=== PATIENT | female | born 1970 | race Caucasian/White ===

== ENCOUNTER 2020-03-15 04:44 | Inpatient (IN) | payer BC, SELFPAY ==
[2020-03-15] VITALS (83 sets, daily range): BP systolic 78–204; BP diastolic 56–123; PULSE 63–104; RESP 10–28; TEMP 36.5–37; O2SAT 90–100; BMI 29.0
--- NOTE | 2020-03-15 04:45 | ECG_ITS ---
[facility] Test Date: 2020-03-15 Pat Name: Saida Corley Department: Room: Gender: Female Loan Analyst: : 1970 Requested By: Mayur Delvalle Order Number: [id number] Joseph MD: Rhea Aggarwal M.D. Measurements Intervals [place] Rate: 65 P: 59 NE: 176 QRS: 50 QRSD: 79 T: 101 QT: 390 QTc: 406 Interpretive Statements SINUS RHYTHM LOW QRS VOLTAGE IN PRECORDIAL LEADS [QRS DEFLECTION < 1.0 mV IN CHEST LEADS] SEPTAL MYOCARDIAL INFARCTION , OF INDETERMINATE AGE [40+ ms Q WAVE IN V1/V2] MARKED ST ELEVATION, CONSIDER INFERIOR INJURY [MARKED ST ELEVATION W/O NORMALLY INFLECTED T WAVE IN II/aVF] ACUTE NH INTERPRETATION BASED ON A DEFAULT AGE OF 40 YEARS Compared to ECG 03/15/2020 04:48:16 Low QRS voltage now present Myocardial infarct finding still present ST (T wave) deviation still present Electronically Signed On 03-15-2020 20:52:58 CDT by Rhea Aggarwal M.D. [id number]
--- NOTE | 2020-03-15 04:45 | XR_ITS ---
WS: [id number] CHEST XRAY TECHNIQUE: Portable chest. CLINICAL INFORMATION: cp COMPARISON: February 03, 2011 FINDINGS: Heart: Normal cardiac silhouette. Lungs: Lungs are clear. No consolidation or pleural effusion. Bones: Normal visualized bony structures. XR/XR chest 1V portable [id number] IMPRESSION: Normal chest
--- NOTE | 2020-03-15 04:55 | W.ED.CHESTPA ---
HPI - Chest Pain General: Chief Complaint: Chest Pain Stated Complaint: cp Time Seen by Provider: 03/15/20 04:50 Source: patient Mode of arrival: ambulatory Limitations: no limitations History of Present Illness: HPI narrative: 49-year-old female states she woke up roughly 1 hour ago with chest pain. Patient states that the pain was a severe pressure type pain in the center of her chest she rates an 8 out of 10. Patient is in no distress currently. Patient states she has no worsening or improving factors. Has had some nausea. Denies any shortness of breath. Denies any cough or fever. MD complaint: chest pain Onset (ago): hour(s) Associated symptoms: Deny abdominal pain, dyspnea, fever(s), nausea or vomiting Review of Systems Const: Denies: fever(s), chills, body aches or change in appetite Eyes: Denies: blurry vision or eye discomfort ENMT: Denies: throat pain or dental pain Card: Reports: chest pain Resp: Denies: dyspnea GI: Denies: abdominal pain, nausea, vomiting or diarrhea : Denies: dysuria Musc: Denies: neck pain or back pain Skin/Breast: Denies: rash Neuro: Denies: headache(s) Psych: Denies: depression Zechariah/Lymph: Denies: easy bruising All/Imm: Denies: urticaria Physical Exam Const: COMMON NORMALS: patient oriented x3 and healthy appearing GENERAL APPEARANCE: in distress HENMT: COMMON NORMALS: normocephalic and atraumatic HEAD & SCALP: normocephalic and atraumatic Eye: COMMON NORMALS: Equal, round and reactive pupils present and EOMs intact bilaterally PUPIL: Yes Equal, round and reactive pupils present Neck/C-Spine: COMMON NORMALS: full ROM and supple Chest: COMMONS NORMALS: normal inspection of the chest and normal palpation of entire chest wall Resp: COMMON NORMALS: normal respiratory effort, No retractions, No use of accessory muscles and clear to auscultation bilaterally AUSCULTATION: clear to auscultation bilaterally Cardio: COMMON NORMALS: regular rate, regular rhythm and No murmurs present (Cardio) RATE: regular rate RHYTHM: regular rhythm GI: COMMON NORMALS: Normal to inspection, nondistended, normoactive bowel sounds present, Soft to palpation, non-tender and no masses PALPATION: Yes Soft to palpation Extremity: COMMON NORMALS: normal to inspection and full ROM Neuro: COMMON NORMALS: patient oriented x3, moves all extremities and no focal motor deficits Psych: COMMON NORMALS: mental status grossly normal, Normal thought process present and cooperative THOUGHT PROCESS: Normal thought process present Skin: COMMON NORMALS: no rashes or lesions noted and no wounds GENERAL SKIN EXAM: no rashes or lesions noted Course Vital Signs: Vital signs: Vital Signs Temperature 97.7 F 03/15/20 04:48 Pulse Rate 67 03/15/20 05:09 Respiratory Rate 16 03/15/20 05:09 Blood Pressure 112/81 03/15/20 05:09 Pulse Oximetry 93 03/15/20 05:09 MDM - Chest Pain MDM Narrative: Medical decision making narrative: Patient presents with chest pain EKG shows an ST elevation NC. Patient is getting aspirin nitro with Plavix and heparin. I spoke to pit crane operator at [phone]. Also called STEMI overhead. Lab Data: Labs: Lab Results 03/15/20 Range/Units 04:55 WBC 10.5 H (4.0-10.0) 10^3/ uL RBC 4.88 (4.1-5.3) 10^6/u L Hgb 15.8 H (11.5-15.3) g/dL Hct 48.2 H (37.0-47.0) % MCV 98.8 (81-99) fL MCH 32.4 (28.0-34.0) pg MCHC 32.8 (30.0-36.0) g/dL RDW 12.9 (12.1-15.1) % Plt Count 218 (130-400) 10^3/c mm MPV 10.7 H (7.4-10.4) fL Neut % (Auto) 68.2 % Lymph % (Auto) 23.1 % [place] % (Auto) 7.0 % Eos % (Auto) 1.0 % Baso % (Auto) 0.3 % Neut # (Auto) 7.19 (1.8-7.7) 10^3/u L Lymph # (Auto) 2.4 (0.8-4.8) 10^3/u L [place] # (Auto) 0.7 (0.2-0.9) 10^3/u L Eos # (Auto) 0.1 (0.0-0.8) 10^3/u L Baso # (Auto) 0.0 (0.0-0.1) 10^3/u L Nucleated RBC % (a uto) 0 % Nucleated RBCs # 0.0 /100WBC EKG Data^: EKG 1: Attestation: I personally reviewed and interpreted this EKG as follows: EKG interpretation date: 03/15/20 EKG interpretation time: 04:48 Interpretation: nsr hr [address] elevation II, III, AVF Discharge Plan Discharge Patient Disposition: Admitted As Inpatient Clinical Impression: ST elevation (STEMI) myocardial infarction Qualifiers: Involved coronary artery: unspecified coronary artery Qualified Code(s): I21.3 - ST elevation (STEMI) myocardial infarction of unspecified site Condition: Stable Coding Level of Care Code ED Avionics Test Technician for Leslie Fwd Exam Comprehensive
[2020-03-15] MEDS: nitroglycerin 0.4 mg sublingual Tablet SUBLINGUAL (04:57)
[2020-03-15] MEDS: sodium chloride 0.9% 1,000 ML 999 ML IV (04:58)
[2020-03-15] MEDS: ondansetron 2 mg/ML SDV 2 mL 4 MG IVP (04:58)
[2020-03-15 04:59] LABS: Basophils % 0.3 %; Eosinophils # 0.1 10^3/uL (0.0-0.8); Hematocrit 48.2 % (37.0-47.0); Hemoglobin 15.8 g/dL (11.5-15.3); Lymphocytes # 2.4 10^3/uL (0.8-4.8); Lymphocytes % 23.1 %; Mean Corpuscular HGB Conc 32.8 g/dL (30.0-36.0); Mean Corpuscular Hemoglobin 32.4 pg (28.0-34.0); Mean Corpuscular Volume 98.8 fL (81-99); Mean Platelet Volume 10.7 fL (7.4-10.4); Monocytes # 0.7 10^3/uL (0.2-0.9); Neutrophils # 7.19 10^3/uL (1.8-7.7); Neutrophils % 68.2 %; Nucleated Red Blood Cells % 0 %; Platelet Count 218 10^3/cmm (130-400); Red Blood Count 4.88 10^6/uL (4.1-5.3); Red Cell Distribution Width 12.9 % (12.1-15.1); White Blood Count 10.5 10^3/uL (4.0-10.0)
[2020-03-15] MEDS: morphine 4 mg/mL SDV 1 mL IVP ×2 (04:59→17:06)
[2020-03-15] MEDS: heparin 5,000 unit/mL INJ 1 mL 4000 UNIT IVP (05:00)
[2020-03-15] MEDS: aspirin 325 mg Tablet PO (05:01)
[2020-03-15] MEDS: clopidogrel 300 mg Tablet 600 MG PO (05:01)
--- NOTE | 2020-03-15 05:13 | XACV_ITS ---
Ht: 168 cm Wt: 82 kg BSA: 1.97 m2 Gender: Female : 1970 Exam Priority: Routine Procedure(s): Procedure Description: Diagnostic procedure Procedure Description: Left Heart Catheterization Procedure Description: Percutaneous coronary intervention Procedure Description: Coronary angiography Diagnostic Cath Status: Emergency Diagnostic Findings * LM has luminal irregularities. * LAD gives rise to 2 diagonal arteries. It has luminal irregularities throughout the vessel. Distally it is a small sized vessel. No significant stenosis is noted.. * CX arises from left main artery. Ostial left circumflex has 30% stenosis. There are luminal irregularities and mid segment.. * Distal Right Coronary Artery: Total thrombotic 100% occlusion, ROBERT: 0 flow. * Coronary angiography shows right dominance. PCI Status: Emergency PCI Indication: STEMI - Immediate PCI for STEMI Interventional Findings * RCA was engaged using a JR4 guide catheter. There was some dampening of pressures. We used JR4 guide catheter with sideholes to perform intervention. A 0.014 run-through guidewire was used to cross the stenosis and was placed in PDA. We used 2.5 x 12 mm semi-compliant balloon to predilate the lesion. This was followed by placement of a 0.75 x 15 mm resolute Rodrigo drug-eluting stent. We postdilated the stent using a 2.75 x 8 mm NC balloon. At this time final angiogram was performed that showed ROBERT-3 flow, excellent expansion of stent and no residual stenosis. At this time guidewire and guide catheter were removed. Patient left the Roller Stainer in a stable condition. * Distal Right Coronary Artery: 100% stenosis treated with TREK 2.50X12 RX BALLOON, MELVINA Dillard RODRIGO 2.75X15 AUGIE, and MELVINA PHELPS EUPHORA RX [id number] BALLOON. 0% residual stenosis, ROBERT: 3 flow. Conclusions 1. There is thrombotic occlusion of distal RCA.. 2. Distal Right Coronary Artery was treated with two Balloon and Drug Eluting Stent. Recommendations * Admit to ICU. * Aggrastat drip for 4 hours. * Aspirin and Plavix for at least 1 year. * Beta-gian and MATI inhibitor therapy. * Order echocardiogram. * Cardiac rehab. Interventional RX Recommendation: PCI w/o planned CABG Diagnostic RX Recommendation: PCI w/o planned CABG Anticoagulation: Heparin Pressures Phase:Rest AO : 106 / 35 ( 68 ) @ 1:19:00 AM 107 / 56 ( 83 ) @ 1:19:00 AM LV : 111 / 17 / @ 1:19:00 AM Clinical Evaluation EBL: 5mL-10mL Procedural Details Admit Source: Emergency department. Identified patient by full name and date of as verbalized by the patient/guarantor. Does the consent match the physician's order: N/A Emergent. Accurate & Complete Informed Consent: N/A Emergent. Inpatient/Outpatient History & Physical on Chart: N/A Emergent. If H&P is completed, is and addenduem needed: N/A Emergent; If yes, is the addendum complete: N/A Emergent. The risks, benefits, and alternatives of sedation and/or procedure were discussed by physician. The patient agrees to continue. Procedure started. Physician arrived. Correct patient, site and procedure confirmed by cath team. Current diagnosis: STEMI. PERRLA. Strong, equal hand coil winder bilaterally. Lungs clear x 5 lobes. Oxygen started at 2liters/min via nasal canula. bilateral groins was prepped with chloroprep then draped in the usual sterile fashion. Physician notified. Baseline sample Acquired. HR: 70 BPM. Physician scrubbed in. Immediate Pre-Procedure Time Out. Correct Patient: N/A Emergent; Correct Procedure: N/A Emergent; Correct Site: N/A Emergent; Correct Patient Position: N/A Emergent; Correct Supplies: N/A Emergent; Dried Flammable Prep: N/A Emergent; Blood Products Available: N/A Emergent;. Lidocaine 1% infiltrated to the right groin. Arterial access obtained. Arterial access obtained with micropuncture set. Baseline sample Acquired. HR: 66 BPM. Inventory is CRD 6FR JR 4 GUIDE 100cm. Inventory is TR 180cm Runthrough NS extra floppy 0.014 wire. Checking an ACT. Runthrough wire inserted. Multiple views taken of left coronary artery. Multiple views taken of right coronary artery. Runthrough wire removed. Balloon ou.t. A 6 gibraltarian JR4 catheter in over wire. Runthrough repositioned to distal RCA. Balloon inserted. Inflation number : 1 A AB TREK 2.50X12 RX BALLOON was prepped and advanced across the Dist RCA , then inflated to 8 YANDY for 0:17 seconds. Balloon out. Inventory is TR 180cm Runthrough NS extra floppy 0.014 wire. Inflation Number : 2 A MELVINA Dillard RODRIGO 2.75X15 AUGIE -Lot Number# was prepped and advanced across the Dist RCA. The stent was deployed at 12 YANDY for 0:24 seconds. Balloon out. Balloon inserted to lesion in the distal RCA. Inflation number : 3 A MELVINA PHELPS EUPHORA RX [id number] BALLOON was prepped and advanced across the Dist RCA , then inflated to 12 YANDY for 0:13 seconds. Runthrough wire removed. 6 gibraltarian JL 4 guide catheter was inserted over the wire. R4 wire removed. Cathater removed over wire. A 6 gibraltarian Angled Pig catheter in over wire. Multiple views taken of right coronary artery. EDP Sample taken: LV 111/17,22; HR: 77 BPM; SpO2: 98%. Pullback taken: LV Off; AO Off; Mean: , Peak to Peak: , SEP: ; HR: 73 BPM; SpO2: 98%. Omnipaque 169mL. Medication's Wasted: Lidocaine 1% = 5mL. Total IV fluids: 1000 mL. [facility] Clinical Fraility Score: 3: Managing Well. Roller Stainer Indications: ACS > 24 hours. Chest Pain Symptom Assessment: Typical Angina Symptoms. Cardiovascular Instability:. Current diagnosis: STEMI. PCI Indication: STEMI. Post-op diagnosis: STEMI. Complications: None. Estimated blood loss: 5mL-10mL. Procedure completed. A Suture was successful obtaining hemostatsis at the Right Femoral artery insertion site. Post Procedure: Pulses reassessed and unchanged. Patient transferred by bed to ICU. Vital chart was stopped. Access Site Site: Right Femoral artery Sheath Size: 6 Fr Hemostasis Method: Suture Hemostasis Success: Successful Procedure Medications Start: 5:37 AM Stop: 5:37 AM Medication: Versed Amount: 1 mg Route: I.V. Start: 5:37 AM Stop: 5:37 AM Medication: Fentanyl Amount: 50 mcg Route: I.V. Start: 5:42 AM Stop: 5:42 AM Medication: Heparin Amount: 4000 units Route: I.V. Start: 5:42 AM Stop: 5:42 AM Medication: Versed Amount: 1 mg Route: I.V. Start: 5:42 AM Stop: 5:42 AM Medication: Fentanyl Amount: 50 mcg Route: I.V. Start: 5:49 AM Stop: 5:49 AM Medication: Aggrastat 12.5 mg/250 mL Amount: ml Route: I.V. bolus Start: 5:54 AM Stop: 5:54 AM Medication: Heparin Amount: 3000 units Route: I.V. Start: 5:59 AM Stop: 5:59 AM Medication: 0.9% Saline Amount: 250 ml Route: I.V. bolus Start: 6:00 AM Stop: 6:00 AM Medication: Versed Amount: 1 mg Route: I.V. Start: 6:00 AM Stop: 6:00 AM Medication: Fentanyl Amount: 50 mcg Route: I.V. Start: 6:09 AM Stop: 6:09 AM Medication: Heparin Amount: 2000 units Route: I.V. I, the attending physician, have reviewed and verified all procedure medications. Yes, all medications given per verbal order History/Risk Factors Hypertension: No Dyslipidemia: No Peripheral Arterial Disease (PAD): No Myocardial Infarction (NM): No Obesity: No Renal Disease: No Prior Interventions PCI: No CABG: No Valve Surgery: No Report Signatures Finalized by Jero Shelton MD on 03/18/2020 06:32 PM
--- NOTE | 2020-03-15 05:25 | P.HP_ITS ---
Providers/Chief Complaint Admitting Physician: Jero Shelton MD Chief Complaint: cp History of Present Illness Saida Corley is a 49 year old female with smoking history presented to the hospital with 2 hours of chest pain. According to the patient she has been having on and off chest pain for the last 1 to 1-1/2 weeks. This morning at 3 AM she woke up with upper chest discomfort that was radiating to the neck and the jaw. This was severe in intensity. No aggravating or relieving factors were noted. She decided to come to the emergency room. Her initial EKG shows inferior lead ST elevations. She continues having chest discomfort. She was loaded with aspirin, Plavix and heparin. Mentions that she is has been on metoprolol because she has a history of ventricular tachycardia. She does not see a measurement operator. No prior cardiac caths or procedures have been done according to her. Mini Baccarat Dealer was activated and patient was emergently brought to Mini [facility]acc[facility] Dealer for coronary angiography. Angiogram showed distal RCA, total thrombotic occlusion. This was successfully revascularized using drug-eluting stent x1. Patient left the Mini Baccarat Dealer in a stable condition. Review of Systems Narrative: CONSTITUTIONAL: No fever chills weight loss or gain or night sweats. [] HEENT: Normocephalic, atraumatic.[] RESPIRATORY: No cough, sputum, hemoptysis or wheezing.[] CARDIOVASCULAR: No shortness of breath, chest pain, PND, orthopnea, lower ex tremity edema, presyncope or syncope. [] GI: no nausea vomiting diarrhea. [] FURNITURE REPRODUCER: No numbness, tingling, weakness or loss of function in any part of the body. [] MUSCULOSKELETAL: No knee or joint pain or rashes. [] Medications/Allergies Allergies Allergy/AdvReac Type Severity Reaction Status Date / Time acetaminophen [From Percocet] Allergy Unknown Verified 03/15/20 04:48 Antihistamines - Alkylamine Allergy Unknown Verified 03/15/20 04:48 Antihistamines - Ethanolamine Allergy Unknown Verified 03/15/20 04:48 Antihistamines - Allergy Unknown Verified 03/15/20 04:48 Ethylenediamine Antihistamines - Piperazine Allergy Unknown Verified 03/15/20 04:48 Antihistamines - Piperidine Allergy Unknown Verified 03/15/20 04:48 oxycodone [From Percocet] Allergy Unknown Verified 03/15/20 04:48 Penicillins Allergy Unknown Verified 03/15/20 04:48 Sulfa (Sulfonamide Allergy Unknown Verified 03/15/20 04:48 Antibiotics) Vitals/I&O/Wt Last Vital Signs Temp 97.7 F 03/15/20 04:48 Pulse 67 03/15/20 05:20 Resp 19 H 03/15/20 05:20 BP 109/74 03/15/20 05:20 Pulse Ox 94 03/15/20 05:20 Weight last 48 hrs Weight 180 lb Physical Exam 2 Narrative: EXAM NARRATIVE: GENERAL: Patient is alert, awake and oriented x3. [] NECK: No jugular vein distension. [] HEENT: No cyanosis. No icterus. No pallor. [] HEART: Regular S1 and S2. No murmur, rub or gallop. [] LUNGS: Clear to auscultate bilaterally. [] ABDOMEN: Soft, nontender and nondistended. Positive bowel sounds. No guarding, rebound or tenderness. [] CENTRAL NERVOUS SYSTEM: Grossly nonfocal. [] EXTREMITIES: Lower extremities with no edema bilaterally. Pulses palpable in the lower extremities, both dorsalis pedis and posterior tibial. [] Data : 03/15/20 04:55 03/15/20 04:55 A&P Assessment and plan (1) ST elevation (STEMI) myocardial infarction: Status: Acute Qualifiers: Involved coronary artery: unspecified coronary artery Qualified Code(s): I21.3 - ST elevation (STEMI) myocardial infarction of unspecified site (2) Tobacco abuse: Status: Acute Patient s/p successful revascularization with AUGIE x 1 Admit to ICU. Continue aspirin and Plavix. High intensity statin therapy. We will initiate beta-gian and MATI inhibitor. Order echocardiogram. Smoking cessation advised Cardiac rehab after discharge. Attestations Medical Necessity Statement*: Care expected to cross [address] midnights. Patient post acute ST elevation myocardial infarction and revascularization Coding Level of Care Code Acute Waterproof Bag Sewer for Leslie Peterson Diagnoses ST elevation (STEMI) myocardial infarction I21.3 Involved coronary artery: unspecified coronary artery Tobacco abuse Z72.0
[2020-03-15 05:28] LABS: Alanine Aminotransferase 40 U/L (0-33); Albumin Level 4.5 g/dL (3.5-5.2); Alkaline Phosphatase 69 IU/L (35-105); Aspartate Amino Transferase 23 U/L (0-32); Blood Urea Nitrogen 10 mg/dL (6-20); Calcium 10.1 mg/dL (8.5-10.5); Carbon Dioxide 25 mmol/L (22-29); Chloride 99 mmol/L (98-107); Globulin 2.3 g/dL (1.3-4.6); Glomerular Filtration Rate 88.6 mL/min (90-130); Glucose 204 mg/dL (65-115); Osmolality Calculated 285 mOsm/kg (285-295); Sodium 135 mmol/L (136-145); Total Bilirubin 0.5 mg/dL (0.15-1.2); Total Protein 6.8 g/dL (6.6-8.7)
[2020-03-15 05:29] LABS: Anion Gap 15.1 (5-19); Potassium 4.1 mmol/L (3.5-5.1)
[2020-03-15 05:30] LABS: Troponin(5th) Baseline 44 ng/L (0-10)
--- NOTE | 2020-03-15 06:45 | ECG_ITS ---
[facility] Test Date: 2020-03-15 Pat Name: Saida Corley Department: Room: Gender: Female Banking Management Consulting Manager: : 1970 Requested By: Mayur Delvalle Order Number: [id number] Joseph MD: Rhea Aggarwal M.D. Measurements Intervals [place] Rate: 69 P: 46 NC: 169 QRS: 56 QRSD: 86 T: 88 QT: 360 QTc: 388 Interpretive Statements SINUS RHYTHM MARKED ST ELEVATION, CONSIDER INFERIOR INJURY [MARKED ST ELEVATION W/O NORMALLY INFLECTED T WAVE IN II/aVF] ACUTE DC No previous ECG available for comparison Electronically Signed On 03-16-2020 21:37:06 CDT by Rhea Aggarwal M.D. [email or web address] general [email or web address] medical specialty hospital - [id number]
[2020-03-15 08:37] LABS: Troponin 5 2HR 2959 ng/L (0-10); Troponin 5 2HR Delta 2915 ABS# (0-10)
--- NOTE | 2020-03-15 09:47 | PC.CHAP ---
Pastoral Care Encounter/Spiritual Assessment Type of Contact [] Declined burring machine operator visit [] Patient/Family/Request visit [] Outpatient visit [] Follow-up visit [] Physician referral [] Code/Alert [x] Routine visit [] Staff referral [] Actively dying [] Patient sleeping [] Family support [] [] Out of room [] Palliative care [] [] Receiving care in room [] Pre-surgical visit [] Trauma [] Long length of stay [] ICU visit [] Other: Relational/Emotional Strength [] Patient feels connected with others/family/visitors/staff [] Distress [] Loneliness/isolation [] Abandonment Spirituality of Patient [] Person of [place] [] Attends Protestant of their [place] [] Believes in Prayer [] Reads Bible or Jain materials [] There are Spiritual issues to be addressed Commercial Account Executive Interventions [x] Prayer [x] Active listening [x] Non-anxious presence [x] Spiritual/emotional support [] Crisis/trauma care [] Spiritual counseling [] Bereavement support [] Provided bereavement packet [] Provided Bible/devotional materials [] Provided toy/stuffed animal, coloring book to patient or family member [] Provided Communion [] Anointing/[place] [] Salvation [x] Completed spiritual assessment [] Other: Impact on Illness or Injury [] Angry [] Fearful [] Anxious [] Often cries [] Exhaustion [] Unable to work [] Unable to attend church [] Unable to walk/stand [] Unable to read [] Unable to drive [] Unable to eat/drink [] Unable to sleep [] Unable to be with family [] Patient intubated [] Other: Summary patient requested Sand Operator for confession... located one at [place]- we will arrive today Time spent with patient 10 min
--- NOTE | 2020-03-15 09:49 | PC.CHAP ---
Pastoral Care Encounter/Spiritual Assessment Type of Contact [] Declined broaching machine set up operator visit [] Patient/Family/Request visit [] Outpatient visit [] Follow-up visit [] Physician referral [] Code/Alert [] Routine visit [] Staff referral [] Actively dying [] Patient sleeping [] Family support [] [] Out of room [] Palliative care [] [] Receiving care in room [] Pre-surgical visit [] Trauma [] Long length of stay [] ICU visit [] Other: Relational/Emotional Strength [] Patient feels connected with others/family/visitors/staff [] Distress [] Loneliness/isolation [] Abandonment Spirituality of Patient [] Person of [place] [] Attends Jewish of their [place] [] Believes in Prayer [] Reads Bible or Buddhism materials [] There are Spiritual issues to be addressed Electromechanical Assembly Technician Interventions [] Prayer [] Active listening [] Non-anxious presence [] Spiritual/emotional support [] Crisis/trauma care [] Spiritual counseling [] Bereavement support [] Provided bereavement packet [] Provided Bible/devotional materials [] Provided toy/stuffed animal, coloring book to patient or family member [] Provided Communion [] Anointing/[place] [] Salvation [] Completed spiritual assessment [] Other: Impact on Illness or Injury [] Angry [] Fearful [] Anxious [] Often cries [] Exhaustion [] Unable to work [] Unable to attend taoist [] Unable to walk/stand [] Unable to read [] Unable to drive [] Unable to eat/drink [] Unable to sleep [] Unable to be with family [] Patient intubated [] Other: Summary Time spent with patient
[2020-03-15 10:04] LABS: Partial Thromboplastin Time 61.4 SECONDS (23.9-36.7)
--- NOTE | 2020-03-15 10:45 | ECG_ITS ---
[facility] Test Date: 2020-04-05 Pat Name: Saida Corley Department: Room: Gender: Female Job Spotter: TOD : 1970 Requested By: Mayur Delvalle Order Number: [id number] Reading MD: Measurements Intervals [place] Rate: 104 P: 74 ME: 158 QRS: 41 QRSD: 106 T: 39 QT: 327 QTc: 432 Interpretive Statements SINUS TACHYCARDIA POSSIBLE LEFT ATRIAL ENLARGEMENT [-0.1mV P WAVE IN V1/V2] INCOMPLETE RIGHT BUNDLE BRANCH BLOCK [90+ ms QRS DURATION, TERMINAL R IN V1/V2, 40+ ms S IN I/aVL/V4/V5/V6] ABNORMAL RHYTHM ECG No previous ECG available for comparison [email or web address] [email or web address] issaquena community hospitalMiami Instrumentsmercy health kings mills hospital.[place]/store/[id number]
[2020-03-15 11:43] LABS: Troponin 5 6HR Delta 2691 ng/L (0-12)
[2020-03-15 11:47] LABS: Troponin 5 6HR 2735 ng/L (0-10)
[2020-03-15 12:18] LABS: Partial Thromboplastin Time 26.1 SECONDS (23.9-36.7)
[2020-03-15] MEDS: fentaNYL 50 mcg/mL INJ 2mL IVP (13:42)
--- NOTE | 2020-03-15 18:43 | USCV_ITS ---
Saida Corley Age: 49 Gender: F : 1970 Exam Date: 03/15/2020 19:00 Ordering Phys: Jero Shelton M.D ([email or web address]) Technologist: Eliceo Mcdonald Exam Location: [facility] Indication: POST CATH HEMATOMA Risk Factors: None Previous Vascular Surgery: CATH RT GROIN RIGHT LEFT Waveform Velocity (cm/s) Velocity (cm/s) Waveform Triphasic 118.1 SFA Prox Triphasic 127.4 SFA Mid Triphasic 119.6 SFA Dist Triphasic 76.1 POP Biphasic 76.1 TELECOMMUNICATIONS CABLE JOINTER Biphasic 73.0 DPA 1.0 ELVA FINDINGS RT GROIN HEMATOMA SMALL 1 CM PSEUDOANUER RT GROIN Echogenic area measuring 5.49 x 2.67 cm in the right groin with no blood flow pseudoaneurysm measuring 1.17 x 0.78 communicating with the common femoral artery CONCLUSIONS 1. Hematoma measuring 5.49 x 2.6 cm in the right groin. 2. Small pseudoaneurysm measuring 1.17 x 0.78, communicating with the right common femoral artery 3. Patent femoral, popliteal and infrapopliteal vessels with a normal ELVA of 1.0. Dr Rhea Aggarwal MD [facility] (Electronically Signed) Final Date: 16 March 2020 11:08 S
[2020-03-15 19:16] LABS: Basophils % 0.3 %; Eosinophils # 0.1 10^3/uL (0.0-0.8); Eosinophils % 0.4 %; Hematocrit 42.9 % (37.0-47.0); Hemoglobin 14.1 g/dL (11.5-15.3); Lymphocytes # 1.7 10^3/uL (0.8-4.8); Lymphocytes % 14.9 %; Mean Corpuscular HGB Conc 32.9 g/dL (30.0-36.0); Mean Corpuscular Hemoglobin 32.5 pg (28.0-34.0); Mean Corpuscular Volume 98.8 fL (81-99); Mean Platelet Volume 10.8 fL (7.4-10.4); Monocytes # 0.7 10^3/uL (0.2-0.9); Monocytes % 6.5 %; Neutrophils # 8.76 10^3/uL (1.8-7.7); Neutrophils % 77.5 %; Nucleated Red Blood Cells % 0 %; Platelet Count 225 10^3/cmm (130-400); Red Blood Count 4.34 10^6/uL (4.1-5.3); Red Cell Distribution Width 12.8 % (12.1-15.1); White Blood Count 11.3 10^3/uL (4.0-10.0)
--- NOTE | 2020-03-15 20:04 | PC.NURSE ---
0700- RECEIVED FROM MEDICAL CODING AUDITOR. SHEATH TO RIGHT GROIN/PRESSURE BAG. PULSES PALPABLE, DENIES NUMBNESS/TINGLING. PT VOICED UNDERSTANDING OF POST CATH INSTRUCTIONS REGARDING SHEATH REMOVAL & BEDREST AFTERWARDS. ATE BREAKFAST. SON IN TO BRING PT HER TABLET & CHECK ON HER.
--- NOTE | 2020-03-15 20:07 | PC.NURSE ---
Addendum entered by Tammy Menard RN 03/15/20 20:12: 1830- RIGHT GROIN FIRM/TENDER/. DR PATE NOTIFIED & TO FLOOR TO ASSESS. HE WANTS MANUAL PRESSURE APPLIED X20MIN, FEMSTOP APPLIED, US HERE TO SCAN SITE, IVF STARTED, ROBERTSON CATH PLACED WITH FOUL SMELL NOTED. Addendum entered by Tammy Menard RN 03/15/20 20:09: 1630- HEMATOMA TO RIGHT GROIN. PRESSURE APPLIED & MASSAGED AREA. SITE TENDER TO TOUCH. Original Note: 1400-SHEATH REMOVAL SHEATH REMOVED FROM RIGHT GROIN. MANUAL PRESSURE APPLIED UNTIL HEMOSTASIS OBTAINED. NO HEMATOMA FORMATION SITE SOFT DRESSING APPLIED PT ON PHONE MOST OF DAY, NAPPING OCCASIONALLY.
[2020-03-15] MEDS: amitriptyline 25 mg Tablet PO (21:22)
[2020-03-15] MEDS: gabapentin 300 mg Capsule PO (21:22)
[2020-03-15] MEDS: acetaminophen 500 mg Tablet 1000 MG PO (21:22)
[2020-03-15] MEDS: atorvastatin 40 mg Tablet 80 MG PO (21:22)
[2020-03-15] MEDS: quetiapine 300 mg Tablet PO ×2 (21:41→21:42)
[2020-03-15] MEDS: CLONazepam 1 mg Tablet PO (21:47)
[2020-03-15 23:10] LABS: Bilirubin Urine Neg (Negative); Blood Urine 3+ (Negative); Glucose Urine UA Norm (Normal); Ketones Urine Negative (Negative); Nitrate Urine Positive (Negative); Protein Urine Neg (Negative); Urine Appearance Cloudy (CLEAR); Urine Color Dark Yellow (Yellow); Urobilinogen Urine Norm (Negative); pH Urine 5 (5-7)
[2020-03-15 23:11] LABS: Add Urine Culture? Yes; Add Urine Microscopic? YES; Bacteria Urine 2+ /hpf; Leukocyte Esterase Urine 2+ (Negative); RBC Urine >100 /hpf (0-2); Squamous Epithelial Cell Urine 0-4 /hpf (0-5); WBC Urine >100 /hpf (0-5)
[2020-03-16] VITALS (64 sets, daily range): BP systolic 81–166; BP diastolic 55–110; PULSE 78–120; RESP 12–33; TEMP 36.7–36.8; O2SAT 84–99
[2020-03-16 06:00] LABS: Basophils % 0.1 %; Eosinophils % 0.3 %; Hematocrit 38.8 % (37.0-47.0); Hemoglobin 12.7 g/dL (11.5-15.3); Lymphocytes # 1.3 10^3/uL (0.8-4.8); Lymphocytes % 12.1 %; Mean Corpuscular HGB Conc 32.7 g/dL (30.0-36.0); Mean Corpuscular Hemoglobin 32.2 pg (28.0-34.0); Mean Corpuscular Volume 98.2 fL (81-99); Mean Platelet Volume 11.2 fL (7.4-10.4); Monocytes # 0.6 10^3/uL (0.2-0.9); Monocytes % 5.7 %; Neutrophils # 8.53 10^3/uL (1.8-7.7); Neutrophils % 81.5 %; Nucleated Red Blood Cells % 0 %; Platelet Count 189 10^3/cmm (130-400); Red Blood Count 3.95 10^6/uL (4.1-5.3); Red Cell Distribution Width 12.9 % (12.1-15.1); White Blood Count 10.5 10^3/uL (4.0-10.0)
[2020-03-16 07:00] LABS: Anion Gap 13.7 (5-19); Blood Urea Nitrogen 12 mg/dL (6-20); Calcium 8.4 mg/dL (8.5-10.5); Carbon Dioxide 22 mmol/L (22-29); Chloride 104 mmol/L (98-107); Glomerular Filtration Rate 88.6 mL/min (90-130); Glucose 229 mg/dL (65-115); Osmolality Calculated 289 mOsm/kg (285-295); Potassium 3.7 mmol/L (3.5-5.1); Sodium 136 mmol/L (136-145)
--- NOTE | 2020-03-16 07:00 | USCV_ITS ---
Saida Corley Age: 49 Gender: F : 1970 Exam Date: 03/16/2020 10:31 Ordering Phys: Jero Shelton M.D Technologist: Makenzie Smith Exam Location: [facility] [place] Indication: STEMI BP: 117 / 97 HR: 85 Rhythm: PVCs Technical Quality: Adequate MEASUREMENTS (Male / Female) Normal Values 2D ECHO LV Diastolic Diameter PLAX 4.5 cm 4.2 - 5.9 / 3.9 - 5.3 cm LV Systolic Diameter PLAX 2.4 cm IVS Diastolic Thickness 1.4 cm 0.6 - 1.0 / 0.6 - 0.9 cm IVS Systolic Thickness 2.0 cm LVPW Diastolic Thickness 0.9 cm 0.6 - 1.0 / 0.6 - 0.9 cm LVPW Systolic Thickness 1.3 cm LV Ejection Fraction 2D Teich 77.9 % LV Ejection Fraction MOD 2C 61.3 % LV Ejection Fraction 2C AL 63.7 % LA Diameter 2.5 cm LA Width 3.5 cm LA Height 4.9 cm RA Width 3.5 cm RA Height 3.9 cm M-MODE LV Diastolic Diameter MM 5.7 cm 4.2 - 5.9 / 3.9 - 5.3 cm LV Systolic Diameter MM 3.4 cm LV Ejection Fraction MM Teich 69.1 % IVS Diastolic Thickness MM 1.0 cm 0.6 - 1.0 / 0.6 - 0.9 cm IVS Systolic Thickness MM 1.7 cm LVPW Diastolic Thickness MM 1.0 cm 0.6 - 1.0 / 0.6 - 0.9 cm LVPW Systolic Thickness MM 1.8 cm Aortic Annulus Diameter 2.9 cm LA Ao Ratio MM 0.9 MV E Point Septal Separation 0.7 cm DOPPLER AV Peak Velocity 124.0 cm/s LVOT Peak Velocity 90.0 cm/s MV Peak Velocity 85.0 cm/s MV Area PHT 4.9 cm squared Mitral E to A Ratio 0.8 MV E' Velocity 33.5 cm/s Mitral E to MV E' Ratio 7.3 Mitral E to LV E' Lateral Ratio 7.1 Mitral E to LV E' Septal Ratio 7.7 TR Peak Velocity 82.0 cm/s TR Peak Gradient 2.7 mmHg Right Atrial Pressure 3.0 mmHg Pulmonary Artery Systolic Pressu 5.7 mmHg PV Peak Velocity 81.3 cm/s RV Acceleration Time 0.1 s FINDINGS Left Ventricle Normal left ventricular size and wall thickness. LV systolic function is mildly reduce with EF of 40-45%. Mild hypokinesis of inferior, inferoseptal wall. Normal left ventricular wall thickness. Grade 1 diastolic dysfunction is present. Right Ventricle The right ventricle is normal in size and function. Right Atrium The right atrium is normal in size. Left Atrium The left atrium is normal in size. Mitral Valve Structurally normal mitral valve without significant stenosis or prolapse. There is no mitral regurgitation. Aortic Valve Structurally normal aortic valve without significant sclerosis or stenosis. There is no aortic regurgitation. Tricuspid Valve Structurally normal tricuspid valve without significant stenosis or regurgitation. Insufficient TR jet to calculate RVSP. Pulmonic Valve Structurally normal pulmonic valve without significant stenosis. There is no pulmonic regurgitation. Pericardium Normal pericardium without effusion. Aorta Normal ascending aorta dimension. CONCLUSIONS LV systolic function is mildly reduced with EF of 40-45%. Above-mentioned wall motion abnormalities are noted. Grade 1 diastolic dysfunction is present. No comparison studies are available. Jero Shelton MD (Electronically Signed) Final Date: 17 March 2020 08:19 S
--- NOTE | 2020-03-16 08:55 | ECG_ITS ---
[facility] Test Date: 2020-03-16 Pat Name: Saida Corley Department: Room: ICU04 Gender: Female Engineering Design Supervisor: : 1970 Requested By: Jero Shelton Order Number: [id number] Joseph MD: Rhea Aggarwal M.D. Measurements Intervals [place] Rate: 105 P: 59 FL: 120 QRS: -27 QRSD: 102 T: -41 QT: 340 QTc: 449 Interpretive Statements SINUS TACHYCARDIA INFERIOR MYOCARDIAL INFARCTION [40+ ms Q WAVE AND/OR ST/T ABNORMALITY IN II/aVF], OF INDETERMINATE AGE Compared to ECG 03/15/2020 05:14:44 Sinus rhythm no longer present ST (T wave) deviation no longer present Myocardial infarct finding still present Electronically Signed On 03-16-2020 21:39:28 CDT by Rhea Aggarwal M.D. [id number]
--- NOTE | 2020-03-16 09:44 | PC.RESP ---
SMOKING CESSATION INFORMATION SENT TO PATIENT.
[2020-03-16] MEDS: gabapentin 300 mg Capsule PO ×3 (10:13→21:12)
[2020-03-16] MEDS: CLONazepam 1 mg Tablet PO ×2 (10:13→17:38)
[2020-03-16] MEDS: lisinopril 2.5 mg Tablet PO (10:13)
[2020-03-16] MEDS: clopidogrel 75 mg Tablet PO (10:14)
[2020-03-16] MEDS: aspirin 81 mg EC Tablet PO (10:14)
[2020-03-16] MEDS: metoprolol tartrate 50 mg Tablet PO ×2 (10:14→17:39)
[2020-03-16] MEDS: quetiapine 300 mg Tablet PO ×2 (10:16→17:39)
--- NOTE | 2020-03-16 10:53 | P.PN_ITS ---
Subjective Subjective: Interval history: Patient is doing well. She developed a hematoma in the right femoral artery access site. A detailed ultrasound was performed last night that showed hematoma without active bleeding and possible small pseudoaneurysm. Pressure was held further. Her hemoglobin has stayed stable. Vitals/I&O/Wt Last Vital Signs Temp 98.3 F 03/16/20 07:45 Pulse 100 03/16/20 10:15 Resp 18 03/16/20 10:15 BP 111/75 03/16/20 10:15 Pulse Ox 98 03/16/20 10:15 03/15/20 03/16/20 03/16/20 22:59 06:59 14:59 Intake Total 1560 / 1920 250 / 250 Output Total 650 / 1050 Balance 1560 / 1520 -650 / 870 250 / 250 Weight last 48 hrs Weight 180 lb Physical Exam Narrative: EXAM NARRATIVE: GENERAL: Patient is alert, awake and oriented x3. [] NECK: No jugular vein distension. [] HEENT: No cyanosis. No icterus. No pallor. [] HEART: Regular S1 and S2. No murmur, rub or gallop. [] LUNGS: Clear to auscultate bilaterally. [] ABDOMEN: Soft, nontender and nondistended. Positive bowel sounds. No guarding, rebound or tenderness. [] CENTRAL NERVOUS SYSTEM: Grossly nonfocal. [] EXTREMITIES: Lower extremities with no edema bilaterally. Pulses palpable in the lower extremities, both dorsalis pedis and posterior tibial. Bruising in the right groin area. Hematoma has decreased in size significantly and the area is soft now. [] Urinary Catheter Management^: Jones: Cath Placed During This Visit: yes Reason for Continuing Indwelling Catheter: Accurate Measurement of Urinary Output in Critically Ill Patients Urinary Catheter Date of Insertion: 03/15/20 Urinary Catheter Time of Insertion: 20:19 Data : 03/16/20 05:05 03/16/20 05:05 A&P Assessment and plan (1) ST elevation (STEMI) myocardial infarction: Status: Acute Qualifiers: Involved coronary artery: unspecified coronary artery Qualified Code(s): I21.3 - ST elevation (STEMI) myocardial infarction of unspecified site (2) Tobacco abuse: Status: Acute Patient underwent successful revascularization of distal RCA yesterday with AUGIE x1. She developed a hematoma last night at femoral access site. Arterial ultrasound was performed that showed presence of hematoma and a small pseudoaneurysm, ho wever there was no active bleeding noted. Patient can be transferred out of ICU today. Continue aspirin and Plavix. Continue beta-gian, lisinopril and high intensity statin therapy. Echocardiogram is ordered, we will await for results. Attestations Medical Necessity Statement*: Care expected to cross 2 midnights. Patient is status post inferior wall acute ST elevation myocardial infarction. Coding Level of Care Code Acute Detective Automobile Section for Leslie Peterson Diagnoses ST elevation (STEMI) myocardial infarction I21.3 Involved coronary artery: unspecified coronary artery Tobacco abuse Z72.0
[2020-03-16 11:30] LABS: Estmated Average Glucose 157; Hemoglobin A1C 7.1 % (4.0-6.0)
[2020-03-16] MEDS: perflutren protein-a microsphr 0.22 mg/mL SDV 3 mL IV (12:32)
--- NOTE | 2020-03-16 14:32 | PC.NURSE ---
1100 9 ml removed from avalos cath balloon avalos removed intact. 20 g. jelco removed from right hand intact.
[2020-03-16] MEDS: nitrofurantoin SR (BID) 100 mg Capsule PO (17:39)
--- NOTE | 2020-03-16 19:15 | PC.NURSE ---
Addendum entered by Giulia Cee RN 03/16/20 19:17: pt arrived to [facility] at 1850. Original Note: pt to room 111 bed one per w/c from icu. oriented to room, call light, and bed controls. placed on softball coach. no s/s of acute distress or discomfort noted. rt groin assessed. bruising noted to groin and upper rt thigh. report to ghada morin.
[2020-03-16] MEDS: atorvastatin 40 mg Tablet 80 MG PO (21:12)
--- NOTE | 2020-03-16 21:38 | PC.NURSE ---
Current dressing is clean and dry. Patient is sleeping plan to change dressing when patient is awake.
[2020-03-16] MEDS: acetaminophen 325 mg Tablet 650 MG PO (22:39)
--- NOTE | 2020-03-16 22:48 | PC.NURSE ---
Incision site re-dressed with 2x2 gauge and Tegarerm ( clear transparent ) cover.
[2020-03-17] VITALS: BP 91/60; PULSE 81; RESP 18; TEMP 37; O2SAT 96
[2020-03-17 02:56] VITALS: BP 93/74; PULSE 76; RESP 19; TEMP 37.2; O2SAT 96
[2020-03-17 08:00] VITALS: BP 119/96; PULSE 85; RESP 14; TEMP 36.5; O2SAT 98
--- NOTE | 2020-03-17 08:38 | P.DS_ITS ---
Discharge Providers Date of Admission: 03/15/20 06:30 Date of Discharge: March 17, 2020 Attending Provider at Admission: Jero Shelton M.D Attending Provider at Discharge: Jero Shelton M.D Diagnoses at Discharge Discharge Diagnosis (1) ST elevation (STEMI) myocardial infarction: Status: Acute Problem details: Treated successfully with drug-eluting stent x1 to distal RCA. Qualifiers: Involved coronary artery: unspecified coronary artery Qualified Code(s): I21.3 - ST elevation (STEMI) myocardial infarction of unspecified site (2) Tobacco abuse: Status: Acute Problem details: Strongly recommended quitting smoking. (3) Urinary tract infection: Status: Acute Problem details: Patient is started on nitrofurantoin treatment. (4) Femoral artery pseudo-aneurysm, right: Status: Acute Problem details: Small in size. Will need follow-up ultrasound of femoral artery in 1 week Reason for Visit Reason for Visit: CHEST PAIN Brief History: 49-year-old patient who presented with acute chest pain. Found to have inferior wall ST elevation NV. She underwent emergent revascularization with drug-eluting stent X 1 to distal RCA. Hospital Course Hospital Course: 49 year old female with smoking history presented to the hospital with 2 hours of chest pain. EKG was performed that showed inferior wall ST elevation NV. She was emergently taken to the Meter Supervisor. Coronary angiography showed total thrombotic occlusion of distal RCA. Emergent revascularization was performed using drug-eluting stent x1. Patient left the Meter Supervisor in stable condition. She stated in the ICU. After removal of femoral sheath a large hematoma was observed. Manual pressure and FemoStop were applied. Femoral artery ultrasound showed small pseudoaneurysm and large hematoma without any active bleeding. Patient stayed hemodynamically stable. Her hemoglobin stayed stable. She was transferred out of ICU the next day. Hematoma decreased in size over the next 1 day. On day of discharge she is stable. She denies any complaints of chest pain, shortness of breath or palpitations. She has ambulated and has no symptoms associated. During course of hospitalization she was also noted to have a UTI on UA. She was started on nitrofurantoin which will be continued for total of 5 days. She will be discharged on aspirin, Plavix, atorvastatin, lisinopril and metoprolol. She will follow-up with [facility] and will need a follow- up arterial ultrasound of femoral artery to assess resolution or progression of pseudoaneurysm in 1 week. Physical Exam Narrative: EXAM NARRATIVE: GENERAL: Patient is alert, awake and oriented x3. [] NECK: No jugular vein distension. [] HEENT: No cyanosis. No icterus. No pallor. [] HEART: Regular S1 and S2. No murmur, rub or gallop. [] LUNGS: Clear to auscultate bilaterally. [] ABDOMEN: Soft, nontender and nondistended. Positive bowel sounds. No guarding, rebound or tenderness. [] CENTRAL NERVOUS SYSTEM: Grossly nonfocal. [] EXTREMITIES: Lower extremities with no edema bilaterally. Pulses palpable in the lower extremities, both dorsalis pedis and posterior tibial. Right femoral hematoma decreasing in size. [] Urinary Catheter Management^: Jones: Cath Placed During This Visit: yes, but has since been removed by the nurse Reason for Continuing Indwelling Catheter: Decision to DC Catheter Urinary Catheter Date of Insertion: 03/15/20 Urinary Catheter Time of Insertion: 20:19 Date Urinary Catheter Removed: 03/16/20 Time Urinary Catheter Discontinued: 11:00 Discharge Data Data Completed and Pending: Completed Studies During Hospitalization Category Date Time Status XR chest 1V yoseph ble [id number] Stat Exams 03/15/20 04:45 [place] [id number] Stat Ultrasound 03/15/20 18:43 Completed CV echo wo/w cont rast [id number] Routine Ultrasound 03/16/20 07:00 Completed Pending at discharge Category Date Time Status PROOFER APPRENTICE request for service Stat Exams 03/15/20 05:13 Taken Urine Culture [facility] 03/15/20 22:28 Received US/CV paperwork R outine Ultrasound 03/16/20 Taken Labs from last 24 hours 03/16/20 05:05 Estimat Average Gl ucose 157 Hemoglobin A1c 7.1 H Vitals: Last Vital Signs Temp 97.7 F 03/17/20 08:00 Pulse 85 03/17/20 08:00 Resp 14 03/17/20 08:00 BP 119/96 03/17/20 08:00 Pulse Ox 98 03/17/20 08:00 Discharge Plan Discharge Patient Disposition: Home Condition: Stable Prescriptions: New atorvastatin 40 mg Tablet 80 mg PO BEDTIME Qty: 60 RF: 3 clopidogrel 75 mg Tablet 75 mg PO DAILY Qty: 90 RF: 3 aspirin 81 mg Tablet,Delayed Release (Dr/Ec) 81 mg PO DAILY Qty: 90 RF: 3 lisinopril 2.5 mg Tablet 2.5 mg PO DAILY Qty: 90 RF: 3 nitrofurantoin monohyd/m-cryst 100 mg Capsule 100 mg PO BID Qty: 8 RF: 0 Continued quetiapine 300 mg tablet 300 mg PO BID RF: 0 clonazepam 1 mg tablet 1 mg PO BID RF: 0 amitriptyline 50 mg tablet 25 - 100 mg PO BEDTIME PRN (Reason: Sleep) RF: 0 Tylenol Extra Strength 500 mg Tablet 1,000 mg PO BEDTIME PRN (Reason: unknown) RF: 0 metoprolol tartrate 50 mg tablet 50 mg PO BID RF: 0 gabapentin 300 mg capsule 300 mg PO TID RF: 0 albuterol sulfate 90 mcg/actuation HFA aerosol inhaler 2 puff INHALATION Q4H PRN (Reason: Shortness Of Breath) RF: 0 Discontinued naproxen 500 mg Tablet 1,000 mg PO BEDTIME PRN (Reason: unknown) RF: 0 Discharge Orders: Discharge Order (Routine); Ordered 03/17/20 Ordered By: Jero Shelton Other Ambulatory Orders: [place] [id number] (Routine) Timeframe: 1 Week Location: [facility] Ordered By: Jero Shelton Referrals: Jero Shelton M.D [Physician] - 1 month (You will have a follow up appointment with Dr. Shelton at [facility] on April at 3:00 pm. If you have any questions please call [phone].) Shala King FNP [Nurse Practitioner] - 7-10 days (You will have an appointment with DARIUS Lynne at [facility] on March at 10:15 am. She will perform a site check and possibly check your lab work. If you have any questions, please call [phone].) Tee Babin MD [Staff Physician] - (You will have a follow up appointment with Dr. Babin on Wednesday, March 25, 2020 at 8:00 am at [facility]. If you have any questions, please call [phone].) Discharge Diet: Cardiac Discharge Activity: Increase activity as tolerated Patient Instructions: Nitrofurantoin (By mouth), Aspirin/Codeine (By mouth), Lisinopril (By mouth), Atorvastatin (By mouth), Clopidogrel (By mouth), Left Heart Catheterization (DC), Coronary Angioplasty (DC), Post Angiogram Home Care Instructions Activity Restrictions/Additional Instructions: Please do not lift weight more than 5 pounds for the next 5 days Discharge Date/Time: 03/17/20 09:50 Discharge Attestations Time Spent in Discharge Care*: greater than 30 min Quality Metrics Clinical Quality Measures During this hospital stay, did patient experience: None Coding Level of Care Code Acute Medical Typist for Leslie Peterson Diagnoses ST elevation (STEMI) myocardial infarction I21.3 Involved coronary artery: unspecified coronary artery Tobacco abuse Z72.0 Urinary tract infection N39.0 Femoral artery pseudo-aneurysm, right I72.4
[2020-03-17] MEDS: metoprolol tartrate 50 mg Tablet PO (08:57)
[2020-03-17] MEDS: nitrofurantoin SR (BID) 100 mg Capsule PO (08:57)
[2020-03-17] MEDS: aspirin 81 mg EC Tablet PO (08:57)
[2020-03-17] MEDS: gabapentin 300 mg Capsule PO (08:57)
[2020-03-17] MEDS: clopidogrel 75 mg Tablet PO (08:57)
[2020-03-17] MEDS: lisinopril 2.5 mg Tablet PO (08:57)
[2020-03-17] MEDS: CLONazepam 1 mg Tablet PO (08:57)
[2020-03-17] MEDS: quetiapine 300 mg Tablet PO (08:57)
[2020-03-17 09:26] VITALS: BP 119/96; PULSE 85; RESP 14; TEMP 36.5; O2SAT 98
[2020-03-17 09:39] VITALS: PULSE 80; RESP 17; O2SAT 97
--- NOTE | 2020-03-17 09:45 | PC.NURSE ---
discharge instructions given, questions answer at this time. iv removed tip intact.
== END 2020-03-17 09:50 | disposition home or self-care (01) | DRG 247 ==
LOC: ER 05:02 → CCL 05:14 → ICU 06:54 → CSU 03-16 18:43
PROVIDERS: Emergency Medicine; Admitting Provider Internal Medicine; Visit Provider Internal Medicine
DX: I21.11 ST elevation (STEMI) myocardial infarction involving right coronary artery (principal); I47.2 Ventricular tachycardia; L76.32 Postprocedural hematoma of skin and subcutaneous tissue following other procedure; N39.0 Urinary tract infection, site not specified; F17.210 Nicotine dependence, cigarettes, uncomplicated; Y84.0 Cardiac catheterization as the cause of abnormal reaction of the patient, or of later complication, without mention of misadventure at the time of the procedure; Y71.1 Therapeutic (nonsurgical) and rehabilitative cardiovascular devices associated with adverse incidents
CPT/HCPCS: 12345; 36415; 51702; 71045; 80048; 80053; 81001; 83036; 84484; 85025; 85730; 87077; 87086; 87186; 93005; 93306; 93452; 93926; 94664; 96375; 99283; C1725; C1769; C1874; C1887; C1894; C8929; C9606; J1644; J2250; J2270; J2405; J3010; J3246; J7030; Q9956; Q9967

== ENCOUNTER 2020-04-14 07:02 | Outpatient (CLI) | payer BC, SELFPAY ==
--- NOTE | 2020-04-14 07:15 | USCV_ITS ---
Saida Corley Age: 49 Gender: F : 1970 Exam Date: 04/14/2020 07:13 Ordering Phys: Shala King Technologist: Eliceo Mcdonald Exam Location: [facility] [place]_ Indication: ? PSEUDOANEURYSM Risk Factors: Smoker Previous Vascular Surgery: RIGHT LEFT BP: 135.0 / 80.00 BP: 135.0/ 80.00 0 0 Waveform Velocity (cm/s) Velocity (cm/s) Waveform Triphasic 199.7 Iliac Prox Triphasic 162.2 Iliac Mid Triphasic 183.2 Iliac Distal Triphasic 133.2 HISTOLOGIST Triphasic 85.1 SFA Prox Triphasic 92.5 SFA Mid Triphasic 105.5 SFA Dist Triphasic 60.9 POP Biphasic 28.2 [employer]MENT[employer]CHO[employer]INCIPAL Biphasic 40.0 DPA 1.1 ELVA FINDINGS LARGE HEMATOMA NO PSEUDOANEURYSM Hypoechoic area measuring 5.64 x 2.99 cm in the right groin The femoral, popliteal and infrapopliteal vessels were found to be patent. No blood flow was noted in the hypoechoic area. CONCLUSIONS Features suggestive of a large hematoma measuring 5.64 x 2.99 cm in the right groin. Patent femoral, popliteal and infrapopliteal vessels on the right side. No evidence of pseudoaneurysm. No evidence of any arterial obstruction on the right side Normal ELVA of the right side Dr Rhea Aggarwal MD [facility] (Electronically Signed) Final Date: 15 April 2020 00:52 S
== END 2020-04-14 07:03 | disposition home or self-care (01) ==
LOC: US 07:03
PROVIDERS: PCP Family Medicine; Visit Provider Nurse Practitioner Family
DX: I72.4 Aneurysm of artery of lower extremity (principal)
CPT/HCPCS: 80048; 85025; 93926

== ENCOUNTER → 2022-01-24 08:34 | Outpatient (BNVA) | payer SELFPAY | PROVIDERS: PCP Family Medicine; Visit Provider Family Medicine | DX: F32.A Depression, unspecified (principal); E11.9 Type 2 diabetes mellitus without complications; I10 Essential (primary) hypertension; I25.119 Atherosclerotic heart disease of native coronary artery with unspecified angina pectoris | CPT/HCPCS: 80053; 80061; 82607; 83036 ==

== ENCOUNTER → 2022-07-24 07:53 | Outpatient (BNVA) | payer SELFPAY | PROVIDERS: PCP Family Medicine; Visit Provider Family Medicine | DX: E11.9 Type 2 diabetes mellitus without complications (principal); I10 Essential (primary) hypertension; I25.119 Atherosclerotic heart disease of native coronary artery with unspecified angina pectoris; F32.A Depression, unspecified | CPT/HCPCS: 80053; 80061; 83036 ==

== ENCOUNTER → 2023-01-29 08:08 | Outpatient (BNVA) | payer SELFPAY | PROVIDERS: PCP Family Medicine; Visit Provider Family Medicine | DX: E11.9 Type 2 diabetes mellitus without complications (principal); I10 Essential (primary) hypertension; I25.10 Atherosclerotic heart disease of native coronary artery without angina pectoris; F32.A Depression, unspecified; I25.119 Atherosclerotic heart disease of native coronary artery with unspecified angina pectoris | CPT/HCPCS: 80053; 80061; 83036 ==

== ENCOUNTER → 2023-07-30 07:32 | Outpatient (BNVA) | payer BC, SELFPAY | PROVIDERS: PCP Family Medicine; Visit Provider Family Medicine | DX: F32.A Depression, unspecified (principal); I10 Essential (primary) hypertension; I25.119 Atherosclerotic heart disease of native coronary artery with unspecified angina pectoris; E11.9 Type 2 diabetes mellitus without complications | CPT/HCPCS: 80053; 80061; 83036 ==

== ENCOUNTER → 2024-02-25 07:42 | Outpatient (BNVA) | payer BC, SELFPAY | PROVIDERS: PCP Family Medicine; Visit Provider Family Medicine | DX: I10 Essential (primary) hypertension (principal); E11.9 Type 2 diabetes mellitus without complications | CPT/HCPCS: 80053; 80061; 83036 ==

== ENCOUNTER → 2024-08-25 07:45 | Outpatient (BNVA) | payer BC, SELFPAY | PROVIDERS: PCP Family Medicine; Visit Provider Family Medicine | DX: F32.A Depression, unspecified (principal); I10 Essential (primary) hypertension; I25.119 Atherosclerotic heart disease of native coronary artery with unspecified angina pectoris; E11.9 Type 2 diabetes mellitus without complications | CPT/HCPCS: 80053; 80061; 83036; 85025 ==

== ENCOUNTER 2024-10-07 00:06 | Emergency (ER) | payer OTHER, SELFPAY ==
[2024-10-07 00:09] VITALS: BP 132/85; PULSE 95; RESP 16; TEMP 36.9; O2SAT 94; BMI 41.9
--- NOTE | 2024-10-07 00:18 | XRR_ITS ---
PROCEDURE INFORMATION: Exam: XR Right Shoulder Exam date and time: 10/07/2024 12:19 AM Age: 54 years old Clinical indication: Injury or trauma; Work related; Blunt trauma (contusions or hematomas); Right; Patient on shift at retirement and tripped and a fall mat landing onto RT shoulder. C/O pain with reduced rom. TECHNIQUE: Imaging protocol: Radiologic exam of the right shoulder. Views: 2 or more views. COMPARISON: CR XR chest 1V portable [id number] 03/15/2020 4:49 AM FINDINGS: Bones/joints: Comminuted greater tuberosity fracture of the right proximal humerus. Negative for glenohumeral joint dislocation. Unremarkable acromioclavicular joint. Soft tissues: Normal. XR/XR shoulder RT min 2V* [id number] IMPRESSION: Proximal right humerus greater tuberosity fracture lucencies.
[2024-10-07 02:11] VITALS: BP 118/65; PULSE 85; RESP 16; O2SAT 92
--- NOTE | 2024-10-07 02:56 | ED_ITS ---
HPI - Extremity Problem General: Chief complaint: Extremity Injury, Upper Stated complaint: WC Right Shoulder Time Seen by Provider: 10/07/24 00:24 History of Present Illness: Patient is a well-appearing 54-year-old female seen for right shoulder pain after she fell accidentally at work striking her shoulder on the ground. She is able to move the arm passively but not actively. She states the pain is 5-10 at rest, 9 of 10 pain with motion. She did not strike her head and has no other acute complaints. She has not taken anything for the pain. Related Data Home Medications ?Medication ?Instructions ?Recorded ?Confirmed acetaminophen 500 mg tablet 1,000 mg PO BEDTIME PRN un known 03/15/20 08/25/24 (Tylenol Extra Strength) Previous Rx's ?Medication ?Instructions ?Recorded aspirin 81 mg tablet,delayed 81 mg PO DAILY #90 tabs 1 release naproxen 500 mg tablet (Naprosyn) 500 mg PO BID #60 ta bs 01/24/22 albuterol sulfate 90 mcg/actuation 2 puff inhalation Q 4H PRN 11/28/23 aerosol inhaler Shortness Of Breath #8.5 gra ms lisinopril 2.5 mg tablet See Rx Instructions .Route 0 12/31/23 .COMPLEX #90 tabs clopidogrel 75 mg tablet See Rx Instructions .Route 0 01/28/24 .COMPLEX #30 tabs gabapentin 300 mg capsule See Rx Instructions .Route 0 01/28/24 .COMPLEX #90 caps clonazepam 1 mg tablet 1 mg PO BID #60 tabs 4 amitriptyline 50 mg tablet 25 - 100 mg (0.5 - 2 x 50 m g) PO 06/25/24 BEDTIME PRN Sleep #60 tabs quetiapine 400 mg tablet See Rx Instructions .Route 0 07/27/24 .COMPLEX #60 tabs atorvastatin 40 mg tablet See Rx Instructions .Route 0 08/25/24 .COMPLEX #30 tabs metoprolol tartrate 50 mg tablet See Rx Instructions . Route 09/24/24 .COMPLEX #90 tabs Allergies Allergy/AdvReac Type Severity Reaction Status Date / Time acetaminophen (From Percocet) Allergy Unknown Verified 10/07/24 00:17 Antihistamines - Alkylamine Allergy Unknown Verified 10/07/24 00:17 Antihistamines - Ethanolamine Allergy Unknown Verified 10/07/24 00:17 Antihistamines - Allergy Unknown Verified 10/07/24 00:17 Ethylenediamine Antihistamines - Piperazine Allergy Unknown Verified 10/07/24 00:17 Antihistamines - Piperidine Allergy Unknown Verified 10/07/24 00:17 diphenhydramine (From Allergy ADR-Halluci Verified 10/07/24 00:17 Benadryl) nating morphine Allergy ADR-Headach Verified 10/07/24 00:17 e oxycodone (From Percocet) Allergy Unknown Verified 10/07/24 00:17 penicillin G Allergy Unknown Verified 10/07/24 00:17 Penicillins Allergy Unknown Verified 10/07/24 00:17 Sulfa (Sulfonamide Allergy Unknown Verified 10/07/24 00:17 Antibiotics) tramadol AdvReac itching Verified 10/07/24 00:17 PFSH ED PFSH: Medical History Depression Diabetes mellitus Supraventricular tachycardia Coronary artery disease Social History Smoking and tobacco/nicotine status: unknown if used tobacco/nicotine Alcohol intake: never Substance/Drug Use: never Physical Exam Const: COMMON NORMALS: no acute distress, patient oriented x3 and alert HENMT: COMMON NORMALS: normocephalic and atraumatic HEAD & SCALP: normocephalic and atraumatic Eye: COMMON NORMALS: Equal, round and reactive pupils present, EOMs intact bilaterally and no scleral icterus PUPIL: Yes Equal, round and reactive pupils present Resp: COMMON NORMALS: normal respiratory effort and No retractions Cardio: COMMON NORMALS: regular rate, regular rhythm and No murmurs present (Cardio) RATE: regular rate RHYTHM: regular rhythm GI: COMMON NORMALS: Normal to inspection, nondistended, normoactive bowel sounds present, Soft to palpation and non-tender PALPATION: Yes Soft to palpation Extremity: NARRATIVE EXTREMITY EXAM: No obvious deformity of the right shoulder. I can passively move it and almost full range of motion however active motion is severely painful. She has tenderness with palpation of the right greater tuberosity of the humerus. Neuro: COMMON NORMALS: patient oriented x3 SENSORIUM/ORIENTATION: Yes alert Skin: COMMON NORMALS: no rashes or lesions noted GENERAL SKIN EXAM: no rashes or lesions noted Course Vital Signs: Vital signs: Vital Signs Temperature 98.4 F 10/07/24 00:09 Pulse Rate 85 10/07/24 02:11 Respiratory Rate 16 10/07/24 02:11 Blood Pressure 118/65 10/07/24 02:11 Pulse Oximetry 92 10/07/24 02:11 Oxygen Delivery Me thod Room Air 10/07/24 00:09 MDM - Extremity (Nontraumatic) Medical Decision Making Patient remained hemodynamically stable 30 course. X-ray shows comminuted fracture of the greater tuberosity of the right humerus. She was placed in the sling and will be discharged in stable condition with follow-up to orthopedics for definitive management. She was offered pain medication but she graciously denies need for them. She will take ibuprofen and Tylenol Lab Data Radiology Impressions Shoulder X-Ray 10/07/24 00:18 IMPRESSION: Proximal right humerus greater tuberosity fracture lucencies. All radiology interpretation(s) finalized by discharge Discharge Plan Discharge Patient Disposition: Home Clinical Impression: Closed fracture of humerus, greater tuberosity Qualifiers: Encounter type: initial encounter Laterality: right Condition: Stable Prescriptions: No Action naproxen [Naprosyn] 500 mg tablet 500 mg PO BID Qty: 60 0RF atorvastatin 40 mg tablet See Rx Instructions .ROUTE .COMPLEX Qty: 30 11RF Dose Instruction: TAKE 1 TABLET BY MOUTH ONCE DAILY FOR HYPERLIPIDEMIA Rx Instructions: TAKE 1 TABLET BY MOUTH ONCE DAILY FOR HYPERLIPIDEMIA albuterol sulfate 90 mcg/actuation HFA aerosol inhaler 2 puff INHALATION Q4H PRN (Reason: Shortness Of Breath) Qty: 8.5 11RF lisinopril 2.5 mg tablet See Rx Instructions .ROUTE .COMPLEX Qty: 90 3RF Dose Instruction: Take 1 tablet by mouth once daily Rx Instructions: Take 1 tablet by mouth once daily clopidogrel 75 mg tablet See Rx Instructions .ROUTE .COMPLEX Qty: 30 11RF Dose Instruction: Take 1 tablet by mouth once daily Rx Instructions: Take 1 tablet by mouth once daily gabapentin 300 mg capsule See Rx Instructions .ROUTE .COMPLEX Qty: 90 11RF Dose Instruction: TAKE 1 CAPSULE BY MOUTH THREE TIMES DAILY FOR NERVE PAIN Rx Instructions: TAKE 1 CAPSULE BY MOUTH THREE TIMES DAILY FOR NERVE PAIN clonazepam 1 mg tablet 1 mg PO BID Qty: 60 5RF amitriptyline 50 mg tablet 25 - 100 mg PO BEDTIME PRN (Reason: Sleep) Qty: 60 11RF quetiapine 400 mg tablet See Rx Instructions .ROUTE .COMPLEX Qty: 60 11RF Dose Instruction: Take 1 tablet by mouth twice daily Rx Instructions: Take 1 tablet by mouth twice daily metoprolol tartrate 50 mg tablet See Rx Instructions .ROUTE .COMPLEX Qty: 90 3RF Dose Instruction: TAKE 2 TABLETS BY MOUTH ONCE DAILY IN THE MORNING AND 1 TABLET ONCE DAILY IN THE EVENING Rx Instructions: TAKE 2 TABLETS BY MOUTH ONCE DAILY IN THE MORNING AND 1 TABLET ONCE DAILY IN THE EVENING Tylenol Extra Strength 500 mg Tablet 1,000 mg PO BEDTIME PRN (Reason: unknown) aspirin 81 mg Tablet,Delayed Release (Dr/Ec) 81 mg PO DAILY Qty: 90 3RF Discharge Orders: Discharge ED (Routine); Ordered 10/07/24 Ordered By: Jong Howard Referrals: Elai Webster DO [Physician] - 4-7 days (greater tuberosity r dominant shoulder fx) Tee Babin MD [Primary Care Provider] - Discharge Diet: Usual diet Discharge Activity: Limit activity as instructed Patient Instructions: Proximal Humerus Fracture (ED) Activity Restrictions/Additional Instructions: Please wear your sling whenever possible and avoid motion of the shoulder. Please follow-up with the orthopedic surgeon as soon as possible to make sure you are healing appropriately. Stand Alone Forms: Work/School Release Print Language: Arabic Coding Level of Care Code ED [employer] Worker for Leslie Peterson
== END 2024-10-07 02:13 | disposition home or self-care (01) ==
PROVIDERS: Emergency Provider Student in an Organized Health Care Education/Training Program; PCP Family Medicine
DX: S42.251A Displaced fracture of greater tuberosity of right humerus, initial encounter for closed fracture (principal); Z79.02 Long term (current) use of antithrombotics/antiplatelets; Z79.82 Long term (current) use of aspirin; W19.XXXA Unspecified fall, initial encounter; E11.9 Type 2 diabetes mellitus without complications; I25.10 Atherosclerotic heart disease of native coronary artery without angina pectoris
CPT/HCPCS: 73030; 99283

== ENCOUNTER → 2024-10-13 13:23 | Outpatient (BNVA) | payer OTHER, SELFPAY | PROVIDERS: PCP Family Medicine; Visit Provider Student in an Organized Health Care Education/Training Program | DX: S42.252A Displaced fracture of greater tuberosity of left humerus, initial encounter for closed fracture (principal); W19.XXXA Unspecified fall, initial encounter | CPT/HCPCS: 73060 ==

== ENCOUNTER 2024-10-22 07:29 | Outpatient (CLI) | payer OTHER, SELFPAY ==
--- NOTE | 2024-10-22 08:00 | CTR_ITS ---
PROCEDURE INFORMATION: Exam: CT Left Upper Extremity Without Contrast, Shoulder Exam date and time: 10/22/2024 7:48 AM Age: 54 years old Clinical indication: Injury or trauma; Fall; Work related; Blunt trauma (contusions or hematomas); Shoulder; Left; Injury date: 10/07/24; Additional info: Fracture TECHNIQUE: Imaging protocol: Computed tomography of the left upper extremity without contrast. Exam focused on the shoulder. Radiation optimization: All CT scans at this facility use at least one of these dose optimization techniques: automated exposure control; mA and/or kV adjustment per patient size (includes targeted exams where dose is matched to clinical indication); or iterative reconstruction. COMPARISON: CR XR chest 1V portable [id number] 03/15/2020 4:49 AM RADIATION DOSE METRICS: Total DLP (mGy-cm): 575.43 FINDINGS: Bones/joints: Mildly comminuted fracture through the greater tuberosity of the humeral head. Slight degenerative changes. Soft tissues: Normal. CT/CT shoulder LT wo con* [id number] IMPRESSION: Comminuted fracture through the greater tuberosity of the humerus.
== END 2024-10-22 07:30 | disposition home or self-care (01) ==
PROVIDERS: PCP Family Medicine; Visit Provider Student in an Organized Health Care Education/Training Program
DX: S42.252A Displaced fracture of greater tuberosity of left humerus, initial encounter for closed fracture (principal); X58.XXXA Exposure to other specified factors, initial encounter
CPT/HCPCS: 73200

== ENCOUNTER 2024-10-23 08:37 | Outpatient (CLI) | payer OTHER, SELFPAY | END 2024-10-23 08:38 | disposition home or self-care (01) | LOC: SPT 08:38 | PROVIDERS: PCP Family Medicine; Visit Provider Student in an Organized Health Care Education/Training Program | DX: Z46.89 Encounter for fitting and adjustment of other specified devices (principal); M25.511 Pain in right shoulder | CPT/HCPCS: A4565 ==

== ENCOUNTER → 2024-11-20 08:34 | Outpatient (BNVA) | payer OTHER, SELFPAY | PROVIDERS: PCP Family Medicine; Visit Provider Physician Assistant | DX: S42.251A Displaced fracture of greater tuberosity of right humerus, initial encounter for closed fracture (principal); X58.XXXA Exposure to other specified factors, initial encounter | CPT/HCPCS: 73030 ==

== ENCOUNTER → 2024-12-18 08:39 | Outpatient (BNVA) | payer OTHER, SELFPAY | PROVIDERS: PCP Family Medicine; Visit Provider Physician Assistant | DX: S42.251A Displaced fracture of greater tuberosity of right humerus, initial encounter for closed fracture (principal); X58.XXXA Exposure to other specified factors, initial encounter | CPT/HCPCS: 73030 ==

== ENCOUNTER → 2025-02-19 07:45 | Outpatient (BNVA) | payer OTHER, SELFPAY | PROVIDERS: PCP Family Medicine; Visit Provider Physician Assistant | DX: S42.251D Displaced fracture of greater tuberosity of right humerus, subsequent encounter for fracture with routine healing (principal); M75.41 Impingement syndrome of right shoulder; X58.XXXD Exposure to other specified factors, subsequent encounter | CPT/HCPCS: 73030 ==

== ENCOUNTER → 2025-02-25 07:39 | Outpatient (BNVA) | payer OTHER, SELFPAY | PROVIDERS: PCP Family Medicine; Visit Provider Family Medicine | DX: I10 Essential (primary) hypertension (principal); I25.119 Atherosclerotic heart disease of native coronary artery with unspecified angina pectoris; E11.9 Type 2 diabetes mellitus without complications; M75.41 Impingement syndrome of right shoulder | CPT/HCPCS: 80053; 80061; 83036 ==

== ENCOUNTER 2025-03-12 07:49 | Outpatient (CLI) | payer OTHER, SELFPAY ==
--- NOTE | 2025-03-12 08:00 | MR_ITS ---
WS: [id number] MRI RIGHT SHOULDER NONCONTRAST TECHNIQUE: Sagittal T2, coronal T1, T2 and proton density imaging. Axial gradient PDE imaging. CLINICAL INFORMATION: shoulder injury COMPARISON: Radiograph 02/19/2025 FINDINGS: Again seen is the comminuted mildly displaced fracture involving the greater tuberosity unchanged since the prior radiograph. Fracture fragments displaced cephalad along the humeral head. Moderate degenerative arthritis AC joint. Subacromial spurring. Slight impingement underlying supraspinatus. Undersurface and high-grade insertional tears of the supraspinatus with tendinopathy and chronic thinning. No tendon retraction. Tendinopathy with small high-grade insertional tear infraspinatus. No tendon retraction. Normal teres minor. Subscapularis tendon appears intact. Biceps tendon intact within the bicipital groove. Tendinopathy intra-articular biceps tendon with increased T2 signal. Moderate degenerative narrowing glenohumeral articulation. Labrum appears grossly intact. MR/MR shoulder RT wo con* [id number] IMPRESSION: 1. Unchanged previously described comminuted fracture of the greater tuberosit y with displacement overlying the lateral humeral head. 2. Chronic thinning with undersurface and high-grade distal insertional tears supraspinatus. No tendon retraction. 3. Tendinopathy infraspinatus with high-grade distal insertional tear. No tend on retraction. 4. Biceps tendon intact within the bicipital groove. 5. Tendinopathy intra-articular biceps tendon.
== END 2025-03-12 07:50 | disposition home or self-care (01) ==
LOC: RAD 07:50
PROVIDERS: PCP Family Medicine; Visit Provider Physician Assistant
DX: S42.251A Displaced fracture of greater tuberosity of right humerus, initial encounter for closed fracture (principal); X58.XXXA Exposure to other specified factors, initial encounter
CPT/HCPCS: 73221